=== PATIENT | male | born 1950 | race Caucasian/White ===

== ENCOUNTER 2017-11-09 08:46 | Emergency (ER) | payer MEDICARE, BC ==
[~2017-11-09 08:46] MED LIST: ASPI-757 PO; ASPIRIN; BACDS PO; BAYER ASPIRIN; CLI150 PO; CYC10 PO; DOXY-228 PO; HYDR-3250 PO; MV,M1TAB4 PO; PHENA200 PO; RANI-366 PO; TRA50 PO
--- NOTE | 2017-11-09 09:25 | ER Report ---
History and Physical Time Seen By MD: 09:00 Hx. of Stated Complaint: "SOMETHING BLEEDING DOWN THERE" HEMORRHOIDS HPI/ROS 67-year-old male not on anticoagulant medication presents with pain and bleeding likely from a known external hemorrhoid. Pain started early this morning. Scant in nature. He does admit to drinking 10-12 beers a week. Otherwise has no coagulation disorders and does not take anticoagulant medications. He has used Preparation H for symptomatic relief, but does report frequent constipation and does not take sitz baths. Allergies: Coded Allergies: Penicillins (Verified Allergy, Unknown, CHILDHOOD, 12/17/16) Home Meds Reported Medications Ranitidine Hcl (ZANTAC) 150 Mg Tablet, 150 MG PO BID, TAB 12/01/16 Mv,Minerals/Fa/Lycopene/Ginkgo (MEN'S 50+ DAILY FORMULA TABLET) 1 Each Tablet, 1 EACH PO DAILY 12/29/14 Hx Smoking: Yes (1/2 PACK PER DAY X 50 YEARS) Smoking Status: Current: Every Day Smoker Hx Substance Use Disorder: No Hx Alcohol Use: Yes (2-3/DAY) Constitutional Vital Sign - Last 24 Hours 11/09/17 11/09/17 11/09/17 11/09/17 08:46 08:55 08:56 09:01 Temp 97.4 Pulse ??? 79 74 Resp 16 B/P (MAP) 171/101 171/101 (124) Pulse Ox 93 93 O2 Delivery Room Air 11/09/17 11/09/17 11/09/17 11/09/17 09:16 09:46 10:00 10:01 Pulse 77 68 66 B/P (MAP) 146/93 (110) Pulse Ox 93 95 11/09/17 11/09/17 11/09/17 10:16 10:30 10:31 Pulse 67 66 B/P (MAP) 151/89 (109) Pulse Ox 95 94 Physical Exam General Appearance: The patient is alert, has no immediate need for airway protection and no current signs of toxicity. Eyes: Pupils equal and round no injection. Respiratory: Chest is non tender, lungs are clear to auscultation. Cardiac: regular rate and rhythm Gastrointestinal: Abdomen is soft and non tender, no masses, bowel sounds normal. : Large external hemorrhoid, not thrombosed, TTP, small clot with continued underlying bleeding DIFFERENTIAL DIAGNOSIS: After history and physical exam differential diagnosis was considered for anal fissure, GI bleed, bleeding internal or external hemorrhoid Medical Decision Making Data Points Result Diagram: 11/09/17 1000 11/09/17 1024 Laboratory Hematology Test 11/09/17 10:00 11/09/17 10:24 Red Blood Count 4.53 M/uL (4.00-5.60) Mean Corpuscular Volume 99.5 fL (80.0-96.0) Mean Corpuscular Hemoglobin 35.0 pg (26.0-33.0) Mean Corpuscular Hemoglobin Concent 35.2 g/dL (32.0-36.0) Red Cell Distribution Width 12.7 % (11.5-14.5) Mean Platelet Volume 9.5 fL (7.2-11.1) Neutrophils (%) (Auto) 62.4 % (39.4-72.5) Lymphocytes (%) (Auto) 16.7 % (17.6-49.6) Monocytes (%) (Auto) 15.9 % (4.1-12.4) Eosinophils (%) (Auto) 4.5 % (0.4-6.7) Basophils (%) (Auto) 0.5 % (0.3-1.4) Nucleated RBC Relative Count (auto) 0.1 /100WBC Neutrophils # (Auto) 3.0 K/uL (2.0-7.4) Lymphocytes # (Auto) 0.8 K/uL (1.3-3.6) Monocytes # (Auto) 0.8 K/uL (0.3-1.0) Eosinophils # (Auto) 0.2 K/uL (0.0-0.5) Basophils # (Auto) 0.0 K/uL (0.0-0.1) Nucleated RBC Absolute Count (auto) 0.00 K/uL Prothrombin Time 12.9 seconds (12.0-14.4) Prothromb Time International Ratio 0.97 Activated Partial Thromboplast Time 34 seconds (23-35) Sodium Level 128 mmol/L (137-145) Potassium Level 4.4 mmol/L (3.5-5.0) Chloride Level 93 mmol/L (98-107) Carbon Dioxide Level 26 mmol/L (22-30) Blood Urea Nitrogen 9 mg/dl (9-21) Creatinine 0.90 mg/dl (0.66-1.25) Glomerular Filtration Rate Calc > 60.0 Random Glucose 83 mg/dl (75-110) Calcium Level 8.5 mg/dl (8.4-10.2) Total Bilirubin 0.7 mg/dl (0.2-1.3) Aspartate Amino Transf (AST/SGOT) 35 U/L (0-35) Alanine Aminotransferase (ALT/SGPT) 37 U/L (0-56) Alkaline Phosphatase 75 U/L (0-126) Total Protein 6.6 g/dl (6.3-8.2) Albumin 3.9 g/dl (3.5-5.0) Chemistry Test 11/09/17 10:00 11/09/17 10:24 White Blood Count 4.8 k/uL (4.5-11.0) Red Blood Count 4.53 M/uL (4.00-5.60) Hemoglobin 15.9 g/dL (14.0-18.0) Hematocrit 45.0 % (42.0-52.0) Mean Corpuscular Volume 99.5 fL (80.0-96.0) Mean Corpuscular Hemoglobin 35.0 pg (26.0-33.0) Mean Corpuscular Hemoglobin Concent 35.2 g/dL (32.0-36.0) Red Cell Distribution Width 12.7 % (11.5-14.5) Platelet Count 167 K/uL (150-450) Mean Platelet Volume 9.5 fL (7.2-11.1) Neutrophils (%) (Auto) 62.4 % (39.4-72.5) Lymphocytes (%) (Auto) 16.7 % (17.6-49.6) Monocytes (%) (Auto) 15.9 % (4.1-12.4) Eosinophils (%) (Auto) 4.5 % (0.4-6.7) Basophils (%) (Auto) 0.5 % (0.3-1.4) Nucleated RBC Relative Count (auto) 0.1 /100WBC Neutrophils # (Auto) 3.0 K/uL (2.0-7.4) Lymphocytes # (Auto) 0.8 K/uL (1.3-3.6) Monocytes # (Auto) 0.8 K/uL (0.3-1.0) Eosinophils # (Auto) 0.2 K/uL (0.0-0.5) Basophils # (Auto) 0.0 K/uL (0.0-0.1) Nucleated RBC Absolute Count (auto) 0.00 K/uL Prothrombin Time 12.9 seconds (12.0-14.4) Prothromb Time International Ratio 0.97 Activated Partial Thromboplast Time 34 seconds (23-35) Glomerular Filtration Rate Calc > 60.0 Calcium Level 8.5 mg/dl (8.4-10.2) Total Bilirubin 0.7 mg/dl (0.2-1.3) Aspartate Amino Transf (AST/SGOT) 35 U/L (0-35) Alanine Aminotransferase (ALT/SGPT) 37 U/L (0-56) Alkaline Phosphatase 75 U/L (0-126) Total Protein 6.6 g/dl (6.3-8.2) Albumin 3.9 g/dl (3.5-5.0) Coagulation Test 11/09/17 10:00 Prothrombin Time 12.9 seconds Prothromb Time International Ratio 0.97 Activated Partial Thromboplast Time 34 seconds ED Course/Re-evaluation ED Course Bleeding of external hemorrhoid controlled with Surgicel. Surgicel was then removed and the patient was observed for an additional hour without additional bleeding. He does drink alcohol frequently, but is not on any anticoagulant medications. I counseled both he and his about the care for hemorrhoids and also for bleeding hemorrhoids. I think given the extent of the external hemorrhoid, he will have to have definitive therapy with a surgeon. I have referred him to Dr. Mueller for definitive care. Decision to Disposition Date: Nov 09, 2017 Decision to Disposition Time: 12:56 Depart Departure Latest Vital Signs Vital Signs Date Time Temp Pulse Resp B/P (MAP) Pulse Ox O2 Delivery O2 Flow Rate FiO2 11/09/17 10:31 66 94 11/09/17 10:30 151/89 (109) 11/09/17 08:55 97.4 16 Room Air Impression: Primary Impression: External hemorrhoid, bleeding Condition: Improved Disposition: HOME OR SELF-CARE Referrals: PEÑA URIAS MD (PCP) YANICK MUELLER MD Patient Instructions: Hemorrhoids (ED) NABEEL STANLEY MD Nov 09, 2017 09:25
[2017-11-09 10:15] LABS: PLATELET COUNT, AUTOMATED 167 K/uL (150-450)
[2017-11-09 10:20] LABS: INR 0.97
[2017-11-09 13:00] VITALS: BP 145/79
== END 2017-11-09 13:03 | disposition home or self-care (01) ==
LOC: ER 09:04
DX: K64.4 Residual hemorrhoidal skin tags (principal); F17.210 Nicotine dependence, cigarettes, uncomplicated
CPT/HCPCS: 82040; 82247; 82310; 82374; 82435; 82565; 82947; 84075; 84132; 84155; 84295; 84450; 84460; 84520; 85025; 85610; 85730; 99282

== ENCOUNTER → 2017-12-09 | Outpatient (CLI) | payer MEDICARE, BC ==
[~2017-12-09] MED LIST changes: +PNEU0.5D3 IM
[2017-12-09 09:16] LABS: LDL CHOLESTEROL 78 mg/dl
== END ==
LOC: LAB 07:59
PROVIDERS: ATTEND Internal Medicine
DX: Z12.5 Encounter for screening for malignant neoplasm of prostate (principal); K64.5 Perianal venous thrombosis; K21.9 Gastro-esophageal reflux disease without esophagitis; I10 Essential (primary) hypertension; N52.9 Male erectile dysfunction, unspecified
CPT/HCPCS: 36415; 81001; 82040; 82247; 82310; 82374; 82435; 82465; 82565; 82947; 83718; 84075; 84132; 84153; 84155; 84295; 84402; 84403; 84443; 84450; 84460; 84478; 84520

== ENCOUNTER → 2018-07-13 | Outpatient (CLI) | payer MEDICARE, BC ==
[~2018-07-13] MED LIST changes: +LISI-362 PO; +SILD100T59 PO; +VAR05PT PO; +VARE1TAB3 PO
[2018-07-13 08:49] LABS: PLATELET COUNT, AUTOMATED 246 K/uL (150-450)
[2018-07-13 09:40] LABS: LDL CHOLESTEROL 81 mg/dl
--- NOTE | 2018-07-13 10:34 | RADIOLOGY IMAGING REPORT ---
FACILITY: [facility] [place] PATIENT NAME: Diego Pollack : 1950 MR: [id number] V: [id number] EXAM DATE: ORDERING PHYSICIAN: PEÑA URIAS TECHNOLOGIST: Location: [facility] Patient: Diego Pollack : 1950 Visit/Account:[id number] Date of Sevice: 07/13/2018 ACUTE ABDOMEN SERIES 3 VIEW Given history: Abdominal pain. History of right lower quadrant hernia repair. COMPARISON: None FINDINGS: Tubes and Lines: None. Lungs and pleura: Well aerated. No evidence of focal consolidation or pleural effusions. Mediastinum: normal. Cardiac silhouette: normal . Osseous structures: Unremarkable for age . Abdominal bowel gas pattern: Within normal limits with air scattered through large and small bowel. Additional findings: Several smooth round calcifications seen in the right lateral pelvic outlet carroll ost surely represent small phleboliths. IMPRESSION: Bowel gas pattern within normal limits. Negative exam Report Dictated By: Delbert Pemberton MD at 07/13/2018 10:27 AM Report E-Signed By: Delbert Pemberton MD at 07/13/2018 10:30 AM WSN:[email or web address]
== END ==
LOC: LAB 08:27
PROVIDERS: ATTEND Internal Medicine
DX: R10.9 Unspecified abdominal pain (principal)
CPT/HCPCS: 36415; 74022; 81001; 82040; 82150; 82247; 82310; 82374; 82435; 82465; 82565; 82947; 83690; 83718; 84075; 84132; 84155; 84295; 84443; 84450; 84460; 84478; 84520; 85025

== ENCOUNTER → 2018-07-16 | Outpatient (CLI) | payer MEDICARE, BC ==
[~2018-07-16] MED LIST changes: +IOPAMIDOL 76% 150 ML INFUS BTL 150 ML ONE
--- NOTE | 2018-07-16 11:23 | RADIOLOGY IMAGING REPORT ---
FACILITY: [facility] - [place] PATIENT NAME: Diego Pollack : 1950 MR: [id number] V: [id number] EXAM DATE: ORDERING PHYSICIAN: PEÑA URIAS TECHNOLOGIST: Location: [facility] Patient: Diego Pollack : 1950 Visit/Account:[id number] Date of Sevice: 07/16/2018 CT ABDOMEN PELVIS W & W/O CONTRAST HISTORY: Abdomen pain since Thursday, distention TECHNIQUE: Axial images acquired through the abdomen/pelvis both with and without IV contrast.. Andie nal and sagittal reformatting also performed.Dose Lowering Technique One of the following dose optimization techniques was utilized in the performance of this exam: Autom ated exposure control; adjustment of the mA and/or kV according to the patient's size; or use of an i terative reconstruction technique. Specific details can be referenced in the facility's radiology C T exam operational policy. CONTRAST: 75 mL [id number] COMPARISON: Gallbladder ultrasound July 23, 2015 FINDINGS: Visualized lung bases: There is thick linear stranding in the inferior right middle lobe lingula and both lower lobes consistent with scarring versus atelectasis. Hepatobiliary: Negative. Spleen: Negative. Adrenals: There is nodular thickening of both adrenal glands Pancreas: Negative. Kidneys ureters and bladder: There is mild perinephric stranding bilaterally. There is a subcentimet er hypodensity in the interpolar region of the left kidney which may represent a cyst although is too small to characterize.. The bladder wall is mildly thickened although this could be related to unde rdistention with urine Genitalia: Negative. GI: There is mild thickening of the second portion of the duodenum. This could be related to spasm although clinical correlation needed. The stomach does not appear distended. There is diverticulosi s of the left side of the colon although no CT evidence of acute diverticulitis. There is submucosal fat is seen in the distal portion of the ileum which can be seen with chronic inf lammation Vessels/spaces/nodes: Negative. Bones/soft tissues: There is a small periumbilical hernia containing fat. There are spondylotic evens nges in the thoracolumbar spine. No aggressive appearing bone lesions are seen Additional findings: None pertinent. IMPRESSION: Mild perinephric stranding bilaterally.. Bladder wall is mildly thickened which could be related to underdistention with urine There is mild thickening the second portion of the duodenum. This could be related to spasm although clinical correlation needed. The stomach does not appear distended Diverticulosis left-sided of the colon although no CT evidence of acute diverticulitis There is submucosal fat in the distal portion of the ileum which can be seen with chronic inflammatio n Small periumbilical hernia containing fat. Scarring versus atelectasis in the lung bases Report Dictated By: Cindi Mckeon MD at 07/16/2018 11:07 AM Report E-Signed By: Cindi Mckeon MD at 07/16/2018 11:19 AM JESSEN:ALEX
== END ==
LOC: CT 00:28
PROVIDERS: ATTEND Internal Medicine
DX: K57.30 Diverticulosis of large intestine without perforation or abscess without bleeding (principal)
CPT/HCPCS: 74178; Q9967

== ENCOUNTER → 2018-07-29 | Outpatient (CLI) | payer MEDICARE, BC ==
[~2018-07-29] MED LIST changes: -IOPAMIDOL 76% 150 ML INFUS BTL 150 ML ONE; +PANT40TA65 PO
== END ==
LOC: LAB 09:22
PROVIDERS: ATTEND Internal Medicine
DX: R10.9 Unspecified abdominal pain (principal)
CPT/HCPCS: 36415; 83516; 86256